=== PATIENT | male | born 1980 | race Caucasian/White ===

== ENCOUNTER 2016-07-12 11:28 | Emergency (ER) | payer BC | END 2016-07-12 12:22 | disposition left against medical advice (07) | LOC: ED 11:28 | DX: Z53.9 Procedure and treatment not carried out, unspecified reason (principal) ==

== ENCOUNTER 2019-12-03 18:11 | Emergency (ER) | payer BC ==
[2019-12-03] MEDS ORDERED: Sodium Chloride 0.9% 1000 ML 1,000 ML IV STA ×2 (18:51→20:15)
[2019-12-03] MEDS ORDERED: Zofran 4 MG/2 ML VIAL IV ONE (18:51)
[2019-12-03] MEDS ORDERED: Phenergan 25 MG INJ IM ONE (18:51)
--- NOTE | 2019-12-03 18:54 | ERPHSYRPT ---
- History of Present Illness Time Seen by Provider: 12/03/19 18:46 Source: patient, family Exam Limitations: no limitations Physician History: pt had vertigo about 1 week ago which resolved, he has had return today with right ear pain and vomiting, nystagmus is present and symptoms increased by head motions and lying back - no trauma an no neuro deficits but has ataxia and imbalance- , no blood thinners , however discussed CT since cerebellar bleed can also have crossover to these symptoms and pt and family wish to proceed after discussion of risks and benefits. pt states his HR is normally in high 40s to low 50s from his running. Timing/Duration: intermittent, days (worse today) ENT Location: ear (R) Associated Symptoms: ear pain (R), dizziness, other (diaphoresis), No headache, No jaw pain Allergies/Adverse Reactions: No Known Drug Allergies Allergy (Verified 12/03/19 18:49) Home Medications: No Home Meds [No Home Meds] 0 11/28/12 [History] Hx Tetanus, Diphtheria Vaccination/Date Given: Yes Hx Influenza Vaccination/Date Given: Yes (2011) Hx Pneumococcal Vaccination/Date Given: No - Review of Systems Constitutional: No Fever, No Chills Eyes: No Symptoms Ears, Nose, & Throat: Ear Pain, Other (vertigo) Respiratory: No Cough, No Dyspnea Cardiac: No Chest Pain, No Edema, No Syncope Abdominal/Gastrointestinal: Nausea, Vomiting, No Abdominal Pain, No Diarrhea Genitourinary Symptoms: No Dysuria Musculoskeletal: No Back Pain, No Neck Pain Skin: No Symptoms, No Rash Neurological: No Dizziness, No Focal Weakness, No Sensory Changes Psychological: No Symptoms Endocrine: No Symptoms All Other Systems: Reviewed and Negative - Past Medical History Pertinent Past Medical History: No Neurological History: No Pertinent History ENT History: No Pertinent History Cardiac History: No Pertinent History Respiratory History: No Pertinent History Endocrine Medical History: No Pertinent History Musculoskeletal History: No Pertinent History GI Medical History: No Pertinent History History: No Pertinent History Psycho-Social History: No Pertinent History Male Reproductive Disorders: No Pertinent History - Past Surgical History Past Surgical History: No Neuro Surgical History: No Pertinent History Cardiac: No Pertinent History Respiratory: No Pertinent History Gastrointestinal: No Pertinent History Genitourinary: No Pertinent History Musculoskeletal: No Pertinent History Male Surgical History: No Pertinent History - Social History Smoking Status: Never smoker Exposure to second hand smoke: Yes Drug Use: none Patient Lives Alone: No - Nursing Vital Signs Nursing Vital Signs: Initial Vital Signs Pulse Rate 45 L 12/03/19 18:36 Respiratory Rate 19 12/03/19 18:36 Blood Pressure 162/74 12/03/19 18:36 O2 Sat by Pulse Oximetry 98 12/03/19 18:36 Pain Scale Pain Intensity 0 - Physical Exam General Appearance: mild distress, alert Eye Exam: bilateral eye: PERRL, EOMI Ear Exam: right ear: auricle normal, canal normal, erythema, TM red, TM bulging, left ear: TM normal Nasal Exam: normal inspection Throat Exam: pharynx normal, moist mucus membranes, No tonsillar exudate Neck Exam: supple Cardiovascular/Respiratory Exam: normal breath sounds, regular rate/rhythm Abdominal Exam: non-tender, soft Neurologic Exam: alert, oriented x 3, sensation nml, No motor deficits Skin Exam: normal color, warm, dry, diaphoresis SpO2 Interpretation: normal O2 Delivery: Room Air - Course Nursing assessment & vital signs reviewed: Yes EKG Interpreted by Me: Sinus Rashaun, Right Marshall Deviation, Right Bundle Branch Block, Non-specific ST Changes (early repol) - CT Exams Head CT Interpretation: Discussed w/radiologist, No/Intracranial Hemorrhag Ordered Tests: Active Orders 24 hr Category Date Time Status Funnel Setter STAT Care 12/03/19 18:52 Active EKG-ER Only STAT Care 12/03/19 18:51 Active IV Insertion STAT Care 12/03/19 18:51 Active Pulse Oximetry (ED) STAT Care 12/03/19 18:51 Active HEAD WITHOUT CONTRAST [CT] Stat Exams 12/03/19 18:51 Taken CBC W DIFF Stat Lab 12/03/19 19:00 Completed CK (IN-HOUSE) [CK-Creatinine Phosphokinase] Stat Lab 12/03/19 18:00 Completed CMP Stat Lab 12/03/19 19:00 Completed TROPONIN Q3H Lab 12/03/19 19:00 Completed TROPONIN Q3H Lab 12/03/19 22:00 Ordered TROPONIN Q3H Lab 12/04/19 01:00 Ordered TROPONIN Q3H Lab 12/04/19 04:00 Ordered TROPONIN Q3H Lab 12/04/19 07:00 Ordered UA W/RFX UR CULTURE Stat Lab 12/03/19 21:34 Completed Medication Summary Discontinued Medications Generic Name Dose Route Start Last Admin Trade Name Venus PRN Reason Stop Dose Admin Sodium Chloride 1,000 mls @ 999 mls/hr 12/03/19 18:51 12/03/19 22:20 Sodium Chloride 0.9% 1000 Ml IV 12/03/19 19:51 Infused .Q1H1M STA Infusion Sodium Chloride Confirm 12/03/19 18:58 Sodium Chloride 0.9% 1000 Ml Administered 12/03/19 18:59 Dose 1,000 mls @ ud .ROUTE .STK-MED ONE Ceftriaxone Sodium/Dextrose Confirm 12/03/19 18:58 Rocephin 1 Gm-D5w 50 Ml Bag Administered 12/03/19 18:59 Dose 1 g in 50 mls @ ud IV .STK-MED ONE Ceftriaxone Sodium/Dextrose 1 g in 50 mls @ 100 mls/hr 12/03/19 19:09 12/03/19 22:20 Rocephin 1 Gm-D5w 50 Ml Bag IV 12/03/19 19:38 Infused STAT STA Infusion Sodium Chloride 1,000 mls @ 999 mls/hr 12/03/19 20:15 12/03/19 22:20 Sodium Chloride 0.9% 1000 Ml IV 12/03/19 21:15 Infused .Q1H1M STA Infusion Sodium Chloride Confirm 12/03/19 20:49 Sodium Chloride 0.9% 1000 Ml Administered 12/03/19 20:50 Dose 1,000 mls @ ud .ROUTE .STK-MED ONE Meclizine HCl Confirm 12/03/19 18:58 Antivert 25 Mg Administered 12/03/19 18:59 Dose 25 mg .ROUTE .STK-MED ONE Meclizine HCl 25 mg 12/03/19 19:08 12/03/19 19:10 Antivert 25 Mg PO 12/03/19 19:09 25 mg STAT ONE Administration Ondansetron HCl 4 mg 12/03/19 18:51 12/03/19 19:03 Zofran 4 Mg/2 Ml Vial IV 12/03/19 18:52 4 mg STAT ONE Administration Ondansetron HCl Confirm 12/03/19 18:58 Zofran 4 Mg/2 Ml Vial Administered 12/03/19 18:59 Dose 4 mg .ROUTE .STK-MED ONE Ondansetron HCl 4 mg 07/03/20 22:35 Zofran Odt 4 Mg PO 12/03/19 22:36 STAT ONE Promethazine HCl 25 mg 12/03/19 18:51 12/03/19 19:06 Phenergan 25 Mg Inj IM 12/03/19 18:52 25 mg STAT ONE Administration Promethazine HCl Confirm 12/03/19 18:58 Phenergan 25 Mg Inj Administered 12/03/19 18:59 Dose 25 mg .ROUTE .STK-MED ONE Lab/Rad Data: Laboratory Result Diagrams 12/03/19 19:00 12/03/19 19:00 Laboratory Results 12/03/19 12/03/19 12/03/19 Range/Units 21:34 19:00 19:00 WBC (4.0-10.5) K/mm3 RBC (4.1-5.6) M/mm3 Hgb (12.5-18.0) gm/dl Hct (42-50) % MCV (78-100) fl MCH (26-32) pg MCHC (32-36) g/dl RDW (11.5-14.0) % Plt Count (150-450) K/mm3 MPV (7.5-11.0) fl Gran % (36.0-66.0) % Eos # (Auto) (0-0.5) Absolute Lymphs (auto) (1.0-4.6) Absolute Monos (auto) (0.0-1.3) Lymphocytes % (24.0-44.0) % Monocytes % (0.0-12.0) % Eosinophils % (0.00-5.0) % Basophils % (0.0-0.4) % Absolute Granulocytes (1.4-6.9) Basophils # (0-0.4) Sodium 137 (137-145) mmol/L Potassium 3.8 (3.5-5.1) mmol/L Chloride 104 (98-107) mmol/L Carbon Dioxide 23 (22-30) mmol/L Anion Gap 13.6 (5-15) MEQ/L BUN 15 (9-20) mg/dL Creatinine 0.78 (0.66-1.25) mg/dL Estimated GFR > 60.0 ML/MIN Glucose 121 H (74-106) mg/dL Calcium 9.2 (8.4-10.2) mg/dL Total Bilirubin 0.70 (0.2-1.3) mg/dL AST 41 (17-59) U/L ALT 84 H (0-50) U/L Alkaline Phosphatase 91 (38-126) U/L Creatine Kinase (55-170) U/L Troponin I < 0.012 (0.000-0.034) ng/mL Serum Total Protein 8.4 H (6.3-8.2) g/dL Albumin 4.9 (3.5-5.0) g/dL Urine Color STRAW (YELLOW) Urine Appearance CLEAR (CLEAR) Urine pH 7.0 (5-6) Ur Specific Cicero 1.005 (1.005-1.025) Urine Protein NEGATIVE (Negative) Urine Ketones SMALL (NEGATIVE) Urine Blood NEGATIVE (0-5) Gabriel/ul Urine Nitrite NEGATIVE (NEGATIVE) Urine Bilirubin NEGATIVE (NEGATIVE) Urine Urobilinogen NEGATIVE (0-1) mg/dL Ur Leukocyte Esterase NEGATIVE (NEGATIVE) Urine WBC (Auto) NONE (0-5) /HPF Urine RBC (Auto) NONE (0-2) /HPF U Epithel Cells (Auto) NONE (FEW) /HPF Urine Bacteria (Auto) NONE (NEGATIVE) /HPF Urine Culture Reflexed NO (NO) Urine Glucose NEGATIVE (NEGATIVE) mg/dL 12/03/19 12/03/19 Range/Units 19:00 18:00 WBC 10.7 H (4.0-10.5) K/mm3 RBC 5.19 (4.1-5.6) M/mm3 Hgb 16.3 (12.5-18.0) gm/dl Hct 46.6 (42-50) % MCV 89.8 (78-100) fl MCH 31.4 (26-32) pg MCHC 35.0 (32-36) g/dl RDW 12.7 (11.5-14.0) % Plt Count 178 (150-450) K/mm3 MPV 11.1 H (7.5-11.0) fl Gran % 84.5 H (36.0-66.0) % Eos # (Auto) 0.01 (0-0.5) Absolute Lymphs (auto) 1.23 (1.0-4.6) Absolute Monos (auto) 0.40 (0.0-1.3) Lymphocytes % 11.5 L (24.0-44.0) % Monocytes % 3.7 (0.0-12.0) % Eosinophils % 0.1 (0.00-5.0) % Basophils % 0.2 (0.0-0.4) % Absolute Granulocytes 9.03 H (1.4-6.9) Basophils # 0.02 (0-0.4) Sodium (137-145) mmol/L Potassium (3.5-5.1) mmol/L Chloride (98-107) mmol/L Carbon Dioxide (22-30) mmol/L Anion Gap (5-15) MEQ/L BUN (9-20) mg/dL Creatinine (0.66-1.25) mg/dL Estimated GFR ML/MIN Glucose (74-106) mg/dL Calcium (8.4-10.2) mg/dL Total Bilirubin (0.2-1.3) mg/dL AST (17-59) U/L ALT (0-50) U/L Alkaline Phosphatase (38-126) U/L Creatine Kinase 135 (55-170) U/L Troponin I (0.000-0.034) ng/mL Serum Total Protein (6.3-8.2) g/dL Albumin (3.5-5.0) g/dL Urine Color (YELLOW) Urine Appearance (CLEAR) Urine pH (5-6) Ur Specific Cicero (1.005-1.025) Urine Protein (Negative) Urine Ketones (NEGATIVE) Urine Blood (0-5) Gabriel/ul Urine Nitrite (NEGATIVE) Urine Bilirubin (NEGATIVE) Urine Urobilinogen (0-1) mg/dL Ur Leukocyte Esterase (NEGATIVE) Urine WBC (Auto) (0-5) /HPF Urine RBC (Auto) (0-2) /HPF U Epithel Cells (Auto) (FEW) /HPF Urine Bacteria (Auto) (NEGATIVE) /HPF Urine Culture Reflexed (NO) Urine Glucose (NEGATIVE) mg/dL - Progress Progress: improved, re-examined Progress Note: 12/03/19 22:36 pt symptoms have resolved and HR back to normal range - discussed with pt and family option to place in on obs including that undetected cardiac pathology could still be evolving and they wish to choose DC with outpt f/u which is very reasonable since most evidence fits BPV with Right ear infection as source and the rashaun which is his baseline was likely also increased by the BPV st imulation. they have the capcity to make this choice. Counseled pt/family regarding: lab results, diagnosis, need for follow-up, rad results - Departure Departure Disposition: Home Clinical Impression: Vertigo, Right otitis media with effusion, Bradycardia, Hypertension Condition: Good Critical Care Time: No Referrals: NICOLE HARRY [Primary Care Provider] - Instructions: Vertigo (a Type of Dizziness) (DC), Bradycardia, High Blood Pressure in Adults Additional Instructions: followup with Dr. Harry to see ENT to workup the vertigo and check the ear infection- also slight elevation of liver test to see Dr. harry. followup your blood pressure , and return meantime if not improving or other concerns Prescriptions: Meclizine HCl 25 mg [Antivert 25 mg] 25 mg PO TID #20 tablet Amoxicillin/Potassium Clav [Augmentin 875-125 Tablet] 875 mg PO BID #20 tablet
[2019-12-03] MEDS ORDERED: ROCEPHIN 1 Gm-D5w 50 ml Bag** 1 G/50 ML IVPB IV ONE (18:58)
[2019-12-03] MEDS ORDERED: Zofran 4 MG/2 ML VIAL ONE (18:58)
[2019-12-03] MEDS ORDERED: Sodium Chloride 0.9% 1000 ML 1,000 ML ONE ×2 (18:58→20:49)
[2019-12-03] MEDS ORDERED: ANTIVERT 25 MG ONE ×2 (18:58→22:52)
[2019-12-03] MEDS ORDERED: Phenergan 25 MG INJ ONE (18:58)
[2019-12-03] MEDS ORDERED: ANTIVERT 25 MG PO ONE ×2 (19:08→22:36)
[2019-12-03] MEDS ORDERED: ROCEPHIN 1 Gm-D5w 50 ml Bag** 1 G/50 ML IVPB IV STA (19:09)
[2019-12-03 19:11] LABS: Absolute Neutrophil Ct (ANC) 9.03 (1.4-6.9); BASOPHIL % 0.2 % (0.0-0.4); Basophil (Absolute #) 0.02 (0-0.4); Eosinophil % 0.1 % (0.00-5.0); Eosinophil (Absolute #) 0.01 (0-0.5); Hematocrit 46.6 % (42-50); Hemoglobin 16.3 gm/dl (12.5-18.0); Lymphocyte (Absolute #) 1.23 (1.0-4.6); Lymphocytes % 11.5 % (24.0-44.0); Mean Cell Volume 89.8 fl (78-100); Mean Corpuscular Hemoglobin 31.4 pg (26-32); Mean Platelet Volume 11.1 fl (7.5-11.0); Monocytes % 3.7 % (0.0-12.0); Neutrophil % 84.5 % (36.0-66.0); Platelet Count 178 K/mm3 (150-450); Red Blood Count 5.19 M/mm3 (4.1-5.6); Red Cell Distribution Width 12.7 % (11.5-14.0); White Blood Count 10.7 K/mm3 (4.0-10.5)
[2019-12-03 19:22] LABS: ALBUMIN 4.9 g/dL (3.5-5.0); ALKALINE PHOSPHATASE 91 U/L (38-126); ANION GAP 13.6 MEQ/L (5-15); BLOOD UREA NITROGEN 15 mg/dL (9-20); CHLORIDE 104 mmol/L (98-107); Calcium 9.2 mg/dL (8.4-10.2); Carbon Dioxide 23 mmol/L (22-30); Creatinine 1 0.78 mg/dL (0.66-1.25); Glucose 121 mg/dL (74-106); Potassium 3.8 mmol/L (3.5-5.1); SGOT/AST 41 U/L (17-59); SGPT/ALT 84 U/L (0-50); SODIUM 137 mmol/L (137-145); Total Protein 8.4 g/dL (6.3-8.2)
[2019-12-03 21:46] LABS: Appearance CLEAR (CLEAR); Bilirubin NEGATIVE (NEGATIVE); Blood NEGATIVE Ery/ul (0-5); Glucose NEGATIVE (NEGATIVE); Ketones SMALL (NEGATIVE); Leukocyte Esterase NEGATIVE (NEGATIVE); Nitrite NEGATIVE (NEGATIVE); Protein,Urine Dip NEGATIVE (Negative); Specific Gravity 1.005 (1.005-1.025); Urobilinogen NEGATIVE mg/dL (0-1)
[2019-12-03] MEDS ORDERED: ZOFRAN ODT 4 MG PO ONE (22:35)
[2019-12-03] MEDS ORDERED: ZOFRAN ODT 4 MG ONE (22:52)
[2019-12-03 23:20] VITALS: BP 160/97; PULSE 61; O2SAT 96
--- NOTE | 2019-12-04 07:39 | XRAY ---
Indication: Dizziness and nausea. No known injury. Multiple contiguous axial images obtained through the head without contrast. Comparison: September 01, 2011. Again normal appearing brain parenchyma, ventricles, and bony calvarium. 1 cm left maxillary sinus polyp/retention cyst. Remaining visualized paranasal sinuses and mastoid air cells are clear. Impression: Continued normal CT head without contrast exam. Incidental left maxillary sinus polyp/retention cyst.
== END 2019-12-03 23:20 | disposition home or self-care (01) ==
LOC: ED 18:11
DX: R42 Dizziness and giddiness (principal); H65.92 Unspecified nonsuppurative otitis media, left ear; R00.1 Bradycardia, unspecified; I10 Essential (primary) hypertension
CPT/HCPCS: 36000; 36415; 70450; 80053; 81001; 82550; 84484; 85025; 93005; 93041; 94760; 96360; 96365; 96372; 96374; 99285; J0696; J2405; J2550; Q0162; A9270-GY

== ENCOUNTER 2023-10-11 14:39 | Emergency (ER) | payer BC, OTHER ==
--- NOTE | 2023-10-11 14:56 | ERPHSYRPT ---
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 They were in a different area than the dog was used to and there was a suspicious box that the dog was trying to bite at and the patient tried to pull the dog away and the dog bit the volar aspect of his right forearm distally. There is no active bleeding at the time that he arrived. Patient's tetanus status is not up-to-date. However, the canine dog's immunizations are up-to-date. Patient drove himself into the emergency department. Timing/Duration: today Quality: painful Severity: mild (To moderate) Location: extremities (Volar aspect distal right forearm) Possible Causes: other Associated Symptoms: denies symptoms Allergies/Adverse Reactions: No Known Drug Allergies Allergy (Verified 12/03/19 18:49) Home Medications: No Home Meds [No Home Meds] 0 11/28/12 [History] Hx Tetanus, Diphtheria Vaccination/Date Given: Yes Hx Influenza Vaccination/Date Given: Yes (2011) Hx Pneumococcal Vaccination/Date Given: No Travel Risk - International Travel Have you traveled outside of the country in past 3 weeks: No - Emerging Infectious Disease Are you exhibiting symptoms associated with any current EIDs: No - Review of Systems Constitutional: No Symptoms Eyes: No Symptoms Ears, Nose, & Throat: No Symptoms Respiratory: No Symptoms Cardiac: No Symptoms Abdominal/Gastrointestinal: No Symptoms Genitourinary Symptoms: No Symptoms Musculoskeletal: No Symptoms Skin: Other (2-1/2 cm horizontally oriented laceration caused by dog bite right distal forearm) Neurological: No Symptoms Psychological: No Symptoms Endocrine: No Symptoms Hematologic/Lymphatic: No Symptoms Immunological/Allergic: No Symptoms All Other Systems: Reviewed and Negative - Past Medical History Pertinent Past Medical History: No Neurological History: No Pertinent History ENT History: No Pertinent History Cardiac History: No Pertinent History Respiratory History: No Pertinent History Endocrine Medical History: No Pertinent History Musculoskeletal History: No Pertinent History GI Medical History: No Pertinent History History: No Pertinent History Psycho-Social History: No Pertinent History Male Reproductive Disorders: No Pertinent History - Past Surgical History Past Surgical History: No Neuro Surgical History: No Pertinent History Cardiac: No Pertinent History Respiratory: No Pertinent History Gastrointestinal: No Pertinent History Genitourinary: No Pertinent History Musculoskeletal: No Pertinent History Male Surgical History: No Pertinent History - Social History Smoking Status: Never smoker Exposure to second hand smoke: Yes Drug Use: none Patient Lives Alone: No - Nursing Vital Signs Nursing Vital Signs: Initial Vital Signs Temperature 98.2 F 10/11/23 14:54 Pulse Rate 94 H 10/11/23 14:54 Respiratory Rate 20 10/11/23 14:54 Blood Pressure 159/99 10/11/23 14:54 O2 Sat by Pulse Oximetry 98 10/11/23 14:54 Pain Scale Pain Intensity 7 - Physical Exam General Appearance: no apparent distress, alert Eye Exam: PERRL/EOMI, eyes nml inspection Ears, Nose, Throat Exam: normal ENT inspection, moist mucous membranes Neck Exam: normal inspection, non-tender, supple, full range of motion Respiratory Exam: normal breath sounds, lungs clear, airway intact, No chest tenderness, No respiratory distress Cardiovascular Exam: regular rate/rhythm, normal heart sounds, normal peripheral pulses Gastrointestinal/Abdomen Exam: soft, normal bowel sounds, No tenderness Rectal Exam: not done Back Exam: normal inspection, normal range of motion, No CVA tenderness, No vert ebral tenderness Extremity Exam: normal range of motion, pelvis stable, lacerations (Horizontally oriented, nonbleeding laceration caused by a dog bite measuring approximately 2.5 cm. No tendon involvement. Neurovascularly intact. No foreign body), tenderness (In the area of a single laceration) Neurologic Exam: alert, oriented x 3, cooperative, well puller head II-XII nml as tested, normal mood/affect, nml cerebellar function, nml station & gait, sensation nml Skin Exam: normal color, warm, dry, laceration (See above extremity section) Lymphatic Exam: No adenopathy SpO2 Interpretation: normal O2 Delivery: Room Air Procedures - Laceration/Wound Repair Right Lower Distal Volar Wrist Time of Procedure: 15:25 Wound Location: Right, wrist Wound Length (cm): 2.5 Wound's Depth, Shape: superficial, linear, into subcut Wound Explored: clean (Wound explored to the base in a bloodless field no foreign body noted) Irrigated: Yes Hibiclens Prep: Yes Wound Repaired With: Ezra (2 ezra placed) - Course Nursing assessment & vital signs reviewed: Yes Ordered Tests: Medication Summary Discontinued Medications Generic Name Dose Route Start Last Admin Trade Name Venus PRN Reason Stop Dose Admin Diphtheria/Tetanus/Acell Pertussis 0.5 ml 10/11/23 15:10 Tdap --Diph,Pertuss(Acell),Tet Vac/Pf 0.5 Ml Vial IM 10/11/23 15:11 .ONCE ONE Lidocaine/Prilocaine 2.5 gm 10/11/23 14:56 10/11/23 15:07 Lidocaine/Prilocaine 5 Gm 5 Gm Tube TP 10/11/23 14:57 2.5 gm STAT ONE Administration Lidocaine/Prilocaine Confirm 10/11/23 15:03 Lidocaine/Prilocaine 5 Gm 5 Gm Tube Administered 10/11/23 15:04 Dose 5 gm TP .STK-MED ONE - Progress Progress: improved, re-examined Progress Note: 10/11/23 15:16 My medical decision making and the assignment of low complexity to this patient's medical history is based on review of the patient's past medical history, review the patient's medication list, review the patient drug allergy list, history present illness and physical findings on examination. No l aboratory radiographic studies necessary in this patient. Will provide the patient with an Adacel intramuscular injection. We will also loosely approximate the patient's laceration site that was caused by dog bite. Counseled pt/family regarding: diagnosis, need for follow-up Medical Desision Making - Diagnostic Testing Diagnostic test were ordered, analyzed, and reviewed by me: No - Risk of complications The pt has a mod risk of morbidity or mortality based on: Need for prescription drug management - Departure Departure Disposition: Home Clinical Impression: Laceration, Dog bite of forearm Condition: Stable Critical Care Time: No Referrals: NICOLE MCGEE [Primary Care Provider] - Follow up/PCP as directed Additional Instructions: Keep the current dressing in place until the evening of 10/12/2023. At that time you may remove the dressing and allow the soapy water to rinse out and roll over the laceration repair site. Rinse, blot dry and recover with a bandage. Do not apply antibiotic ointment. Staple removal in 8 to 10 days. Prescriptions: Oxycodone HCl/Acetaminophen [Percocet 5-325 mg Tablet] 1 each PO Q12H PRN PRN #6 tablet MDD 2 PRN Reason: Moderate To Severe Pain Amoxicillin/Potassium Clav [Augmentin 500-125 Tablet] 1 each PO TID 7 Days #21 tablet
[2023-10-11 14:59] VITALS: BP 159/99; PULSE 94; RESP 20; TEMP 98.2; O2SAT 98
[2023-10-11] MEDS ORDERED: EMLA Cream 5 GM TP ONE (15:03)
[2023-10-11] MEDS: EMLA Cream 5 GM TP ONE (15:07)
[2023-10-11] MEDS ORDERED: Adacel Vial IM ONE (15:15)
[2023-10-11] MEDS: Adacel Vial IM ONE (15:17)
== END 2023-10-11 15:39 | disposition home or self-care (01) ==
LOC: ED 14:39
DX: S51.851A Open bite of right forearm, initial encounter (principal); W54.0XXA Bitten by dog, initial encounter; Y92.520 Airport as the place of occurrence of the external cause; Y99.0 Civilian activity done for income or pay; Z23 Encounter for immunization
CPT/HCPCS: 12001; 90471; 90715; 99282; A9270-GY